=== PATIENT | female | born 1980 | race Caucasian/White ===

== ENCOUNTER 2017-01-06 15:58 | Inpatient (IN) | payer MEDICAID, OTHER ==
--- NOTE | 2017-01-06 16:16 | ED ---
Overdose HPI - General Source: patient, EMS, RN notes reviewed Mode of arrival: EMS Limitations: no limitations - History of Present Illness MD Complaint: intentional overdose <Kye Yates - Last Filed: 01/06/17 16:16> <Ravindra Gonsales - Last Filed: 01/06/17 22:47> - General Chief Complaint: Overdose Stated Complaint: Overdose Time Seen by Provider: 01/06/17 16:04 - History of Present Illness Initial Comments: This is a 36-year-old female with a history of bipolar disorder who took 2425 mg Benadryl about 2 hours prior to admission. She is here in petition by police. She admits to being suicidal and apparently she had her children taken away from her by CPS a couple days ago. She denies any alcohol or drugs this time. She does smoke cigarettes. She had a hysterectomy 6 years ago and states she could not possibly be . (Kye Yates) Review of Systems ROS Other: All systems not noted in ROS Statement are negative. <Kye Yates - Last Filed: 01/06/17 16:16> ROS Other: All systems not noted in ROS Statement are negative. <Ravindra Gonsales - Last Filed: 01/06/17 22:47> ROS Statement: Those systems with pertinent positive or pertinent negative responses have been documented in the HPI. Past Medical History Past Medical History: Thyroid Disorder History of Any Multi-Drug Resistant Organisms: MRSA Date of last positivie culture/infection: 11/2015 MDRO Source:: hand Past Surgical History: Hysterectomy Additional Past Surgical History / Comment(s): carpal tunnel surgery, D&C Past Psychological History: Bipolar Smoking Status: Current every day smoker Past Alcohol Use History: None Reported Past Drug Use History: None Reported <MilanKye - Last Filed: 01/06/17 16:16> General Exam Limitations: no limitations General appearance: alert, in no apparent distress Head exam: Present: atraumatic, normocephalic, normal inspection Eye exam: Present: normal appearance, PERRL, EOMI. Absent: scleral icterus, conjunctival injection, periorbital swelling ENT exam: Present: normal exam, mucous membranes moist Neck exam: Present: normal inspection. Absent: tenderness, meningismus, lymphadenopathy Respiratory exam: Present: normal lung sounds bilaterally. Absent: respiratory distress, wheezes, rales, rhonchi, stridor Cardiovascular Exam: Present: regular rate, normal rhythm, normal heart sounds. Absent: systolic murmur, diastolic murmur, rubs, gallop, clicks GI/Abdominal exam: Present: soft, normal bowel sounds. Absent: distended, tenderness, guarding, rebound, rigid Extremities exam: Present: normal inspection, full ROM, normal capillary refill. Absent: tenderness, pedal edema, joint swelling, calf tenderness Back exam: Present: normal inspection Neurological exam: Present: alert, oriented X3, CN II-XII intact Psychiatric exam: Present: depressed, flat affect, suicidal ideation Skin exam: Present: warm, dry, intact, normal color. Absent: rash <Kye Yates - Last Filed: 01/06/17 16:16> General appearance: alert, in no apparent distress Head exam: Present: atraumatic, normocephalic, normal inspection Eye exam: Present: normal appearance, PERRL, EOMI. Absent: scleral icterus, conjunctival injection, periorbital swelling ENT exam: Present: normal exam, mucous membranes moist Neck exam: Present: normal inspection. Absent: tenderness, meningismus, lymphadenopathy Respiratory exam: Present: normal lung sounds bilaterally. Absent: respiratory distress, wheezes, rales, rhonchi, stridor Cardiovascular Exam: Present: regular rate, normal rhythm, normal heart sounds. Absent: systolic murmur, diastolic murmur, rubs, gallop, clicks GI/Abdominal exam: Present: soft, normal bowel sounds. Absent: distended, tenderness, guarding, rebound, rigid Extremities exam: Present: normal inspection, full ROM, normal capillary refill. Absent: tenderness, pedal edema, joint swelling, calf tenderness Back exam: Present: normal inspection Neurological exam: Present: alert, oriented X3, CN II-XII intact Psychiatric exam: Present: normal affect, normal mood Skin exam: Present: warm, dry, intact, normal color. Absent: rash <Ravindra Gonsales - Last Filed: 01/06/17 22:47> - General Exam Comments Initial Comments: This is a well-developed well-nourished awake alert but lethargic female (Kye Yates) Course <Kye Yates - Last Filed: 01/06/17 16:16> <Ravidnra Gonsales - Last Filed: 01/06/17 22:47> Vital Signs 01/06/17 01/06/17 01/06/17 15:59 17:06 17:50 Temperature 97 F L Pulse Rate 63 63 54 L Respiratory 16 18 18 Rate Blood Pressure 150/87 133/75 120/73 O2 Sat by Pulse 100 100 100 Oximetry 01/06/17 01/06/17 19:00 21:20 Temperature 97.9 F Pulse Rate 57 L 65 Respiratory 18 16 Rate Blood Pressure 137/82 134/70 O2 Sat by Pulse 100 99 Oximetry - Reevaluation(s) Reevaluation #1: 01/06/17 22:46 Patient's medically clear for psychiatric evaluation (Ravindra Gonsales) Medical Decision Making - EKG Data -: EKG Interpreted by Al EKG shows normal: sinus rhythm (Sinus rhythm of 59. Interval 132 QRS duration 90 QT since QTC of 466/461 moderate criteria for LVH no acute ST-T wave elevation or depressions) <Kye Yates - Last Filed: 01/06/17 16:16> - Lab Data Result diagrams: 01/06/17 16:49 01/06/17 16:44 <Ravindra Gonsales - Last Filed: 01/06/17 22:47> - Medical Decision Making 36 female who was seen and evaluated with psychiatry, will be admitted for psychiatric evaluation and treatment (Ravindra Gonsales) - Lab Data Lab Results 01/06/17 01/06/17 Range/Units 16:44 16:49 WBC 8.4 (3.8-10.6) k/uL RBC 4.25 (3.80-5.40) m/uL Hgb 13.2 (11.4-16.0) gm/dL Hct 40.1 (34.0-46.0) % MCV 94.2 (80.0-100.0) fL MCH 31.1 (25.0-35.0) pg MCHC 33.0 (31.0-37.0) g/dL RDW 13.3 (11.5-15.5) % Plt Count 221 (150-450) k/uL Neutrophils % 60 % Lymphocytes % 32 % Monocytes % 4 % Eosinophils % 2 % Basophils % 1 % Neutrophils # 5.0 (1.3-7.7) k/uL Lymphocytes # 2.7 (1.0-4.8) k/uL Monocytes # 0.3 (0-1.0) k/uL Eosinophils # 0.2 (0-0.7) k/uL Basophils # 0.1 (0-0.2) k/uL Sodium 143 (137-145) mmol/L Potassium 3.4 L (3.5-5.1) mmol/L Chloride 110 H (98-107) mmol/L Carbon Dioxide 25 (22-30) mmol/L Anion Gap 8 mmol/L BUN 9 (7-17) mg/dL Creatinine 0.67 (0.52-1.04) mg/dL Est GFR (MDRD) Af Amer >60 (>60 ml/min/1.73 sqM) Est GFR (MDRD) Non-Af >60 (>60 ml/min/1.73 sqM) Glucose 68 L (74-99) mg/dL Calcium 9.4 (8.4-10.2) mg/dL Salicylates <1.0 mg/dL Acetaminophen <10.0 ug/mL Serum Alcohol <10 mg/dL Disposition <Kye Yates - Last Filed: 01/06/17 16:16> <Ravindra Gonsales - Last Filed: 01/06/17 22:47> Clinical Impression: Suicide attempt by multiple drug overdose Disposition: TRANSFER TO PSYCH HOSP/UNIT Condition: Fair Referrals: None,Stated [Primary Care Provider] - 1-2 days
[2017-01-06 16:59] LABS: Basophils # (A) 0.1 k/uL (0-0.2); Basophils % (A) 1 %; CH 30.8; CHCM 32.9; Eosinophils # (A) 0.2 k/uL (0-0.7); Eosinophils % (A) 2 %; HCT 40.1 % (34.0-46.0); HDW 2.47; HGB 13.2 gm/dL (11.4-16.0); Luc # (Auto) 0.12; Luc % (Auto) 1; Lymphocytes # (A) 2.7 k/uL (1.0-4.8); Lymphocytes % (A) 32 %; MCH 31.1 pg (25.0-35.0); MCV 94.2 fL (80.0-100.0); Mean Platelet Volume 8.1; Monocytes # (A) 0.3 k/uL (0-1.0); Monocytes % (A) 4 %; Neutrophils % (A) 60 %; RBC 4.25 m/uL (3.80-5.40); RDW 13.3 % (11.5-15.5); WBC 8.4 k/uL (3.8-10.6); WBC (Perox) 8.58
[2017-01-06 17:08] LABS: Acetaminophen <10.0 ug/mL; Alcohol <10 mg/dL; Anion Gap 8 mmol/L; Blood Urea Nitrogen 9 mg/dL (7-17); Calcium 9.4 mg/dL (8.4-10.2); Carbon Dioxide 25 mmol/L (22-30); Chloride 110 mmol/L (98-107); Glucose 68 mg/dL (74-99); Non-African American GFR(MDRD) >60 (>60 ml/min/1.73 sqM); Potassium 3.4 mmol/L (3.5-5.1); Salicylate <1.0 mg/dL; Sodium 143 mmol/L (137-145)
[2017-01-07 01:14] LABS: Glucose,Whole Blood 83 mg/dL (75-99)
[2017-01-07] MEDS ORDERED: MAGNESIUM HYDROXIDE 2,400 MG/10 ML CUP PO PRN (02:40)
[2017-01-07] MEDS ORDERED: ZIPRASIDONE 20 MG VIAL IM PRN (02:40)
[2017-01-07] MEDS ORDERED: MAG HYDROX/AL HYDROX/SIMETH 30 ML CUP PO PRN (02:40)
[2017-01-07] MEDS ORDERED: LORazepam 2 MG/ML INJ IM PRN (02:44)
[2017-01-07] MEDS: NICOTINE 14MG/24HR PATCH TRANSDERM SCH (08:11)
[2017-01-07] MEDS ORDERED: LEVOTHYROXINE 75 MCG TAB PO STA (10:53)
[2017-01-07] MEDS: GABAPENTIN 300 MG CAP PO SCH ×3 (12:00→20:32)
[2017-01-07] MEDS: LORazepam 1 MG TAB PO PRN ×2 (12:01→16:19)
[2017-01-07] MEDS: ACETAMINOPHEN TAB 325 MG TAB PO PRN (12:02)
--- NOTE | 2017-01-07 12:52 | P.HPMEDMHU ---
History of Present Illness H&P Date: 01/07/17 Chief Complaint: depression 36-year-old female that was admitted for depression. Patient says that she recently moved here to the area. She denies being actively suicidal now. Review of Systems All systems: negative Constitutional: Denies chills, Denies fever Eyes: denies blurred vision, denies diplopia Ears, nose, mouth and throat: Denies headache, Denies sore throat Cardiovascular: Denies chest pain, Denies shortness of breath Respiratory: Denies cough, Denies pleurisy, Denies wheezing Gastrointestinal: Denies abdominal pain, Denies diarrhea, Denies nausea, Denies vomiting Genitourinary: Denies dysuria, Denies hematuria Musculoskeletal: right: wrist pain (pain and numbness sec to carpal tunnel), absent: ankle pain, hand pain Integumentary: Denies pruritus, Denies rash Neurological: Reports numbness, Denies weakness Psychiatric: Reports depression Endocrine: Denies fatigue, Denies weight change Hematologic/Lymphatic: Denies lymphadenopathy Past Medical History Past Medical History: Thyroid Disorder History of Any Multi-Drug Resistant Organisms: MRSA Date of last positivie culture/infection: 11/2015 MDRO Source:: hand Past Surgical History: Hysterectomy Additional Past Surgical History / Comment(s): carpal tunnel surgery, D&C Past Psychological History: Bipolar Smoking Status: Current every day smoker Past Alcohol Use History: None Reported Past Drug Use History: None Reported Medications and Allergies Home Medications and Allergies Comment(s): synthroid (has taken in over 1 month) Home Medications Medication Instructions Recorded Confirmed Type No Known Home Medications [No 01/06/17 01/06/17 History Known Home Medications] Allergies Allergy/AdvReac Type Severity Reaction Status Date / Time No Known Allergies Allergy Verified 01/06/17 16:28 Physical Exam Vitals: Vital Signs Temp Pulse Pulse Resp BP BP Pulse Ox 01/07/17 02:08 98.1 F 69 16 109/71 01/07/17 01:36 97.4 F L 67 16 126/59 97 01/06/17 21:20 97.9 F 65 16 134/70 99 01/06/17 19:00 57 L 18 137/82 100 01/06/17 17:50 54 L 18 120/73 100 01/06/17 17:06 63 18 133/75 100 01/06/17 15:59 97 F L 63 16 150/87 100 Intake and Output 01/06/17 01/07/17 01/07/17 22:59 06:59 14:59 Other: Weight 67.132 kg 63.957 kg - Constitutional General appearance: no acute distress - EENT Eyes: EOMI, PERRLA ENT: normal oropharynx - Neck Neck: no lymphadenopathy, normal ROM - Respiratory Respiratory: bilateral: CTA, negative: rhonchi, wheezing - Cardiovascular Rhythm: regular Heart sounds: normal: S1, S2 - Gastrointestinal General gastrointestinal: no organomegaly, soft, no tenderness - Integumentary Integumentary: normal, no rash - Neurologic Neurologic: CNII-XII intact - Psychiatric Psychiatric: A&O x's 3 Cranial Nerve Examination - Cranial Nerves Cranial Nerve II- Optic: Intact Cranial Nerve III- Oculomotor: Intact Cranial Nerve IV- Trochlear: Intact Cranial Nerve V- Trigeminal: Intact Cranial Nerve - Abducens: Intact Cranial Nerve VII- Facial: Intact Cranial Nerve VIII- Auditory: Intact Cranial Nerve IX- Glossopharyngeal: Intact Cranial Nerve X- Vagus: Intact Cranial Nerve XI- Accessory: Intact Cranial Nerve XII- Hypoglossal: Intact Results CBC & Chem 7: 01/06/17 16:49 01/06/17 16:44 Labs: Abnormal Lab Results - Last 24 Hours (Table) 01/06/17 01/06/17 Range/Units 16:44 22:40 Potassium 3.4 L (3.5-5.1) mmol/L Chloride 110 H (98-107) mmol/L Glucose 68 L (74-99) mg/dL Ur Amphetamines Screen Detected H (NotDetected) U Methamphetamines Scrn Detected H (NotDetected) U Benzodiazepines Scrn Detected H (NotDetected) Assessment and Plan (1) Suicide attempt by multiple drug overdose Current Visit: Yes Status: Acute Code(s): T50.902A - POISONING BY UNSP DRUG/ MEDS/BIOL SUBST, SELF-HARM, INIT SNOMED Code(s): 58711544 (2) Depression Narrative/Plan: per psychiatry Current Visit: Yes Status: Acute Code(s): F32.9 - MAJOR DEPRESSIVE DISORDER , SINGLE EPISODE, UNSPECIFIED SNOMED Code(s): 04149729 (3) Hypothyroid Narrative/Plan: Patient has not taken her medication for over a month Would recommend checking thyroid profile at this time Current Visit: Yes Status: Acute Code(s): E03.9 - HYPOTHYROIDISM, UNSPECIFIED SNOMED Code(s): 52045495
[2017-01-07] MEDS: OLANZapine 5 MG TAB PO SCH (20:32)
--- NOTE | 2017-01-08 02:08 | P.HP ---
Psychiatric H&P - . H&P Date: 01/07/17 History & Physical: VITALS: Temp 98.1 F 01/07/17 02:08 Pulse 69 01/07/17 02:08 Resp 16 01/07/17 02:08 BP 109/71 01/07/17 02:08 Pulse Ox 97 01/07/17 01:36 I/O'S: 01/06/17 01/07/17 01/07/17 18:59 06:59 18:59 Weight 67.132 kg 63.957 kg LABS: WBC 8.4 k/uL (3.8-10.6) 01/06/17 16:49 RBC 4.25 m/uL (3.80-5.40) 01/06/17 16:49 Hgb 13.2 gm/dL (11.4-16.0) 01/06/17 16:49 Hct 40.1 % (34.0-46.0) 01/06/17 16:49 MCV 94.2 fL (80.0-100.0) 01/06/17 16:49 MCH 31.1 pg (25.0-35.0) 01/06/17 16:49 MCHC 33.0 g/dL (31.0-37.0) 01/06/17 16:49 RDW 13.3 % (11.5-15.5) 01/06/17 16:49 Plt Count 221 k/uL (150-450) 01/06/17 16:49 Neutrophils % 60 % 01/06/17 16:49 Lymphocytes % 32 % 01/06/17 16:49 Monocytes % 4 % 01/06/17 16:49 Eosinophils % 2 % 01/06/17 16:49 Basophils % 1 % 01/06/17 16:49 Neutrophils # 5.0 k/uL (1.3-7.7) 01/06/17 16:49 Lymphocytes # 2.7 k/uL (1.0-4.8) 01/06/17 16:49 Monocytes # 0.3 k/uL (0-1.0) 01/06/17 16:49 Eosinophils # 0.2 k/uL (0-0.7) 01/06/17 16:49 Basophils # 0.1 k/uL (0-0.2) 01/06/17 16:49 Sodium 143 mmol/L (137-145) 01/06/17 16:44 Potassium 3.4 mmol/L (3.5-5.1) L 01/06/17 16:44 Chloride 110 mmol/L (98-107) H 01/06/17 16:44 Carbon Dioxide 25 mmol/L (22-30) 01/06/17 16:44 Anion Gap 8 mmol/L 01/06/17 16:44 BUN 9 mg/dL (7-17) 01/06/17 16:44 Creatinine 0.67 mg/dL (0.52-1.04) 01/06/17 16:44 Est GFR (MDRD) Af Amer >60 (>60 ml/min/1.73 sqM) 01/06/17 16:44 Est GFR (MDRD) Non-Af >60 (>60 ml/min/1.73 sqM) 01/06/17 16:44 Glucose 68 mg/dL (74-99) L 01/06/17 16:44 POC Glucose (mg/dL) 83 mg/dL (75-99) 01/07/17 01:10 POC Glu Security Systems Manager Dawna Judd 01/07/17 01:10 Calcium 9.4 mg/dL (8.4-10.2) 01/06/17 16:44 Urine HCG, Qual Not Detected (Not Detectd) 01/06/17 22:40 Salicylates <1.0 mg/dL 01/06/17 16:44 Urine Opiates Screen Not Detected (NotDetected) 01/06/17 22:40 Ur Oxycodone Screen Not Detected (NotDetected) 01/06/17 22:40 Urine Methadone Screen Not Detected (NotDetected) 01/06/17 22:40 Ur Propoxyphene Screen Not Detected (NotDetected) 01/06/17 22:40 Acetaminophen <10.0 ug/mL 01/06/17 16:44 Ur Barbiturates Screen Not Detected (NotDetected) 01/06/17 22:40 U Tricyclic Antidepress Not Detected (NotDetected) 01/06/17 22:40 Ur Phencyclidine Scrn Not Detected (NotDetected) 01/06/17 22:40 Ur Amphetamines Screen Detected (NotDetected) H 01/06/17 22:40 U Methamphetamines Scrn Detected (NotDetected) H 01/06/17 22:40 U Benzodiazepines Scrn Detected (NotDetected) H 01/06/17 22:40 Urine Cocaine Screen Not Detected (NotDetected) 01/06/17 22:40 U Marijuana (THC) Screen Not Detected (NotDetected) 01/06/17 22:40 Serum Alcohol <10 mg/dL 01/06/17 16:44 HPI: Patient is 36 year old female who presented to the ER by EMS after overdosing on approximately 24 25-mg tablet of Benadryl 2-hours prior to presentation. Patients reason for such was that CPS took her children away a few days ago. Patients petition is bizarre and references patient engaging in what sounds to be psychotic behavior at home with a knife that father denied when collateral was obtained later today. However, patients UDS is positive for amphetamine, methamphetamine, and she did OD on 24+ Benadryl so the exact nature of her mental status prior to admission is unknown. However, her father denies any property damage and her children are in ID. At this time patient remains paranoid but denies SI/HI/AVH. PSYCHIATRIC HISTORY: 05/2016 at [facility] in [place] PAST HISTORY: Past Medical History: Thyroid Disorder History of Any Multi-Drug Resistant Organisms: MRSA Date of last positive culture/infection: 11/2015 MDRO Source:: hand Past Surgical History: Hysterectomy Additional Past Surgical History / Comment(s): carpal tunnel surgery, D&C Past Psychological History: Bipolar Smoking Status: Current every day smoker Past Alcohol Use History: None Reported Past Drug Use History: None Reported HOME MEDICATIONS: Zyprexa 5-mg PO BID Neurontin 600-mg PO TID Synthroid 75-mcg PO AC Breakfast ALLERGIES: No Known Allergies FAMILY HISTORY: No siblings, bipolar disorder "Good growing up" SOCIAL HISTORY: Education: 11th Occupational : factory work, 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[employer], currently unemployed Environmental: currently lives with father, : no Spiritism: no Access to firearms: no Sexual orientation: heterosexual Safety at home: no STRENGTHS/WEAKNESSES: Family support Non-compliance, impulsivity MENTAL STATUS EXAM: Appearance: alert, hygiene intact, appears stated age, steady gait Behavior: psychomotor agitation+++, no abnormal movements, fair eye contact Attitude: cooperative Speech: normal rate, rhythm, fluency, articulation, volume, and prosody; primary language: Ukrainian Mood: anxious Affect: congruent, reactive Thought processes: overall linear at times concrete Thought content: patient does not appear to be responding to internal stimuli; patient denies auditory and visual hallucinations, no delusions appreciated, paranoid Insight: limited Judgment: poor Cognitive: oriented to all 3 spheres, average intelligence Assessment and Plan (1) Mood disorder Current Visit: Yes Status: Acute Code(s): F39 - UNSPECIFIED MOOD [AFFECTIVE ] DISORDER SNOMED Code(s): 69450016 (2) Anticholinergic drug overdose Current Visit: Yes Status: Acute Code(s): T44.3X1A - POISONING BY OTH PARASYMPATH AND SPASMOLYTICS, ACC, INIT SNOMED Code(s): 275181489 (3) Hypothyroid Current Visit: Yes Status: Acute Code(s): E03.9 - HYPOTHYROIDISM, UNSPECIFIED SNOMED Code(s): 00649419 Plan: Restart home medications patient has been mostly noncompliant with she was prescribed in [place] per her request: Zyprexa 5-mg PO BID Neurontin 300-mg PO TID Synthroid 75-mcg PO Breakfast AC Continue hospitalization SW will arrange a family meeting Provisional discharge on 01/10/2017 Time with Patient: Greater than 30
[2017-01-08] MEDS: LEVOTHYROXINE 75 MCG TAB PO SCH (05:54)
[2017-01-08] MEDS ORDERED: LEVOTHYROXINE 75 MCG TAB PO SCH (06:30)
[2017-01-08] MEDS: NICOTINE 14MG/24HR PATCH TRANSDERM SCH (09:01)
[2017-01-08] MEDS: GABAPENTIN 300 MG CAP PO SCH ×3 (09:01→21:05)
[2017-01-08] MEDS: OLANZapine 5 MG TAB PO SCH ×2 (09:01→19:53)
[2017-01-08] MEDS: LORazepam 1 MG TAB PO PRN ×2 (09:02→15:22)
[2017-01-08] MEDS: ACETAMINOPHEN TAB 325 MG TAB PO PRN (13:02)
--- NOTE | 2017-01-08 16:03 | P.PN ---
Progress Note - Text Progress Note Date: 01/08/17 interval history: Patient reports that she feels more withdrawn today. She states that she is sleeping a lot. She is eating well. She states that her kids were Dr. Vega in [place] and the plan was for her mom to have them for a period of time. She does seem to describe some aspects of depression. She has responded well to Celexa in the past she states. Mental status exam: She is alert and cooperative with the interview. Her speech is fluent, not rapid or pressured. Thought processes are organized. She denies any thoughts of harm to self or others. She denies any hallucinations. She denies any paranoid thinking. She does not show any agitation. Her affect overall is restricted. Plan: We'll maintain current psychotropic medications. Continue to monitor her mood. Consider initiation of antidepressant depending on her status over the next day or so. She reports responding well to Celexa in the past. Continue to cover this patient for Dr. Velazquez through the weekend.
[2017-01-09] MEDS: LORazepam 1 MG TAB PO PRN ×3 (00:12→15:55)
[2017-01-09] MEDS: LEVOTHYROXINE 75 MCG TAB PO SCH (06:43)
[2017-01-09] MEDS: OLANZapine 5 MG TAB PO SCH ×2 (08:40→21:09)
[2017-01-09] MEDS: NICOTINE 14MG/24HR PATCH TRANSDERM SCH (08:40)
[2017-01-09] MEDS: GABAPENTIN 300 MG CAP PO SCH ×3 (08:40→21:09)
--- NOTE | 2017-01-09 16:36 | P.PN ---
Progress Note - Text Progress Note Date: 01/09/17 Interval history: Patient is seen in cross coverage today for Dr. Velazquez. She reports that she wants to go home. She makes reference to after discharge staying with her father. She does seem to describe anxiety. She reports that she got a call from her ex-last night and she ended up hanging up. There was concern verbalize by staff regarding her making reference of thoughts of harm to him. She verbalizes that she was angry at him but denies any thoughts of harm to him and denies any thoughts of harm to other people. Mental status exam: She is alert and overall cooperative with the interview. Her affect is restricted. She denies any thoughts of harm to self or others. She denies any thoughts of harm to her ex. She does not verbalize any hallucinations. Her thought processes overall are organized. She does not show any significant degree of agitation. Plan: Patient will be maintained on current psychotropic medication regimen. We 'll continue to monitor her mood and monitor regarding any thoughts of harm to self or others. Dr. Velazquez to resume care this patient starting tomorrow.
[2017-01-09] MEDS: ACETAMINOPHEN TAB 325 MG TAB PO PRN (18:33)
[2017-01-09] MEDS: LORATADINE 10 MG TAB PO SCH (21:09)
[2017-01-10] MEDS: LEVOTHYROXINE 75 MCG TAB PO SCH (06:25)
[2017-01-10 07:09] VITALS: BP 111/59; PULSE 74; RESP 14; TEMP 98.3
[2017-01-10] MEDS: LORATADINE 10 MG TAB PO SCH (08:37)
[2017-01-10] MEDS: OLANZapine 5 MG TAB PO SCH (08:37)
[2017-01-10] MEDS: GABAPENTIN 300 MG CAP PO SCH (08:37)
[2017-01-10] MEDS: NICOTINE 14MG/24HR PATCH TRANSDERM SCH (08:37)
[2017-01-10] MEDS: LORazepam 1 MG TAB PO PRN (08:38)
--- NOTE | 2017-01-30 22:38 | P.DS ---
Providers Date of admission: 01/07/17 01:23 Expected date of discharge: 01/10/17 Attending physician: Toni Velazquez DO Consults: 01/07/17 02:40 Consult Physician Routine Consulting Provider: Robin Thomson Consult Reason/Comments: medical management Do you want consulting provider notified?: Already Contacted Primary care physician: Stated None - Discharge Diagnosis(es) (1) Mood disorder Status: Acute (2) Anticholinergic drug overdose Status: Ruled-out (3) Hypothyroid Status: Acute Hospital Course: HOSPITAL COURSE: * Legal status at discharge: Voluntary * Compliant with medications: Yes * Reported adverse side effects: No * Required restraints/seclusion: No * Emergency Medication administered: No * Attended group, recreational, activity therapies: Mostly Patient is 36-year-old female who was brought to the hospital by police on a petition with statements about patient thinking there are people living in her couch and stabbing her daughter's bed while she is asleep and it, people breaking into her house and sexually assaulting her children and leaving the trace. She is also reported to have overdosed on 24-25 Benadryl. The patient also states the children were removed from the home 3 days ago. As it turns out very little of this is true. Patient denied all of this. Collateral obtained from father and CPS confirmed there was no damage furniture in the house. The children are in [place]. Patient does have some history of mental illness and does better on medication per father. He reports that she has not Provider in a while and thus had no prescriptions. Patient agreeable to restart medications. Father had no objections to patient discharging on this care. SW: met with pt 1:1 to discuss dc planning. pt refuses to sign an BELÉN for her mom, stating she "hates" her "for taking my kids from me". pt signed an BELÉN for her father Kennedy. Pt lives with father and plans to return there upon d/c. Per Kennedy , pt hasn't been on her medications for approximately 2 months. Father states she gets paranoid when she's off her meds. He confirmed no one has been trying to get her cell phone or break in the home. Inquired r/t reports of pt stabbing the bed. Per father, "that never happened. There are no holes in the bed or the couch.". Father states that pt was doing well in [place] but since coming to [place] and getting off meds, she's decompensated. Will discuss further in tx team meeting. MENTAL STATUS EXAM: Appearance: alert, groomed, appears stated age, steady gait Behavior: no psychomotor agitation or psychomotor retardation, no abnormal movements, fair eye contact Attitude: cooperative Speech: normal rate, rhythm, fluency, articulation, volume, and prosody; primary language: Yoruba Mood: anxious Affect: congruent, mildly constricted Thought processes: linear Thought content: patient does not appear to be responding to internal stimuli ; patient denies auditory and visual hallucinations, no delusions appreciated Insight: limited Judgment: fair Cognitive: oriented to all 3 spheres, average intelligence Patient Condition at Discharge: Fair Plan - Discharge Summary New Discharge Prescriptions: New Levothyroxine Sodium [Synthroid] 75 mcg PO DAILY@0630 #14 tab Nicotine 14Mg/24Hr Patch [Habitrol] 1 patch TRANSDERM DAILY 28 Days patch OLANZapine [ZyPREXA] 5 mg PO BID #28 tab Gabapentin [Neurontin] 400 mg PO TID #42 cap Discharge Medication List Gabapentin [Neurontin] 400 mg PO TID #42 cap 01/10/17 [Rx] Levothyroxine Sodium [Synthroid] 75 mcg PO DAILY@0630 #14 tab 01/10/17 [Rx] Nicotine 14Mg/24Hr Patch [Habitrol] 1 patch TRANSDERM DAILY 28 Days patch 01/10 [Rx] OLANZapine [ZyPREXA] 5 mg PO BID #28 tab 01/10/17 [Rx] Follow up Appointment(s)/Referral(s): [facility] [address] [Outside] - 3 Days (walk in intake within next 48 hours. today until 3pm. Tuesday 1030- 5pm Tuesday 830- 300pm ) None,Stated [Primary Care Provider] - 1-2 days Patient Instructions/Handouts: Mood Disorders (GEN), Suicide Prevention for Adults (GEN) Activity/Diet/Wound Care/Special Instructions: Activity and diet as tolerated. Avoid the use of street drugs and alcohol. Take all medications as prescribed. When you are in need of refills on your medications please contact your medical provider and/or outpatient psychiatrist to have this done. Please go to scheduled outpatient appointment for aftercare treatment. If symptoms return or become worse call the the crisis line at and/or go to the nearest emergency room for an evaluation. Discharge Disposition: HOME SELF-CARE
== END 2017-01-10 13:56 | disposition home or self-care (01) | DRG 918 ==
LOC: EC 15:58 → 3MHU 01-07 01:23
PROVIDERS: ADMIT Psychiatry & Neurology Psychiatry; ATTEND Psychiatry & Neurology Psychiatry
DX: T44.3X1A Poisoning by other parasympatholytics [anticholinergics and antimuscarinics] and spasmolytics, accidental (unintentional), initial encounter (principal); F31.9 Bipolar disorder, unspecified; E03.9 Hypothyroidism, unspecified; T43.596A Underdosing of other antipsychotics and neuroleptics, initial encounter; T42.6X6A Underdosing of other antiepileptic and sedative-hypnotic drugs, initial encounter; T38.1X6A Underdosing of thyroid hormones and substitutes, initial encounter; R45.87 Impulsiveness; F41.9 Anxiety disorder, unspecified; F17.210 Nicotine dependence, cigarettes, uncomplicated; Z86.14 Personal history of Methicillin resistant Staphylococcus aureus infection; Z90.710 Acquired absence of both cervix and uterus
CPT/HCPCS: 36415; 80048; 80306; 80320; 81025; 82075; 83520; 84443; 85025; 93005; 99285

== ENCOUNTER 2019-07-19 12:47 | Emergency (ER) | payer MEDICAID, OTHER ==
[2019-07-19 13:02] VITALS: BP 110/56; PULSE 73; RESP 18; TEMP 98.3
[2019-07-19] MEDS ORDERED: CYCLOBENZAPRINE 10MG STARTER 3 TAB BTL PO STA (13:27)
--- NOTE | 2019-07-19 13:29 | ED ---
Neck Injury/Pain HPI - General Chief Complaint: Neck Pain/Injury Stated Complaint: Neck pain/injury Time Seen by Provider: 07/19/19 13:09 Mode of arrival: ambulatory Limitations: no limitations - History of Present Illness Initial Comments: Patient is a 38-year-old female presenting to the emergency department with a chief complaint of neck pain. Patient reports 2 days ago she was in a pool playing with her daughter who was on her shoulders and squeezed her neck with her legs as she went down under water. She states her neck she days she has developed tenderness along the lateral trapezius and now has caused to have limited range of motion with left and right rotation to the neck. Denies taking medication to alleviate the symptoms. Denies any night sweats fevers or chills. Denies any lightheadedness, numbness or tingling. - Related Data Previous Rx's Medication Instructions Recorded Gabapentin [Neurontin] 400 mg PO TID #42 cap 01/10/17 Levothyroxine Sodium [Synthroid] 75 mcg PO DAILY@0630 #14 tab 01/10/17 Nicotine 14Mg/24Hr Patch [Habitrol] 1 patch TRANSDERM DAILY 28 Days 01/10/17 patch OLANZapine [ZyPREXA] 5 mg PO BID #28 tab 01/10/17 Cyclobenzaprine [Flexeril] 5 mg PO TID PRN #15 tablet 07/19/19 Allergies Allergy/AdvReac Type Severity Reaction Status Date / Time No Known Allergies Allergy Verified 07/19/19 13:02 Review of Systems ROS Statement: Those systems with pertinent positive or pertinent negative responses have been documented in the HPI. ROS Other: All systems not noted in ROS Statement are negative. Past Medical History Past Medical History: Thyroid Disorder History of Any Multi-Drug Resistant Organisms: MRSA Date of last positivie culture/infection: 11/2015 MDRO Source:: hand Past Surgical History: Hysterectomy Additional Past Surgical History / Comment(s): carpal tunnel surgery, D&C Past Psychological History: Bipolar Smoking Status: Current every day smoker Past Alcohol Use History: None Reported Past Drug Use History: None Reported General Exam Limitations: no limitations General appearance: alert, in no apparent distress Head exam: Present: atraumatic, normocephalic, normal inspection Eye exam: Present: normal appearance, PERRL, EOMI Pupils: Present: normal accommodation ENT exam: Present: normal exam, mucous membranes moist Neck exam: Present: normal inspection, tenderness (Tenderness along bilateral trapezius. tenderness. No midline cervical tenderness.), full ROM. Absent: meningismus, other (No nuchal rigidity.) Respiratory exam: Present: normal lung sounds bilaterally Cardiovascular Exam: Present: regular rate, normal rhythm, normal heart sounds Extremities exam: Present: normal inspection, full ROM Back exam: Present: normal inspection, full ROM Neurological exam: Present: alert, oriented X3 Psychiatric exam: Present: normal affect, normal mood Skin exam: Present: warm, dry, intact, normal color Course Vital Signs 07/19/19 12:58 Temperature 98.3 F Pulse Rate 73 Respiratory 18 Rate Blood Pressure 110/56 O2 Sat by Pulse 98 Oximetry Medical Decision Making - Medical Decision Making Patient is a 38-year-old female presenting to the emergency department with a chief complaint of neck pain. On exam patient appears to have limited range of motion with left and right rotation due to pain. She does have tenderness along the lateral trapezius radiating to her shoulder. No midline cervical tenderness. No direct trauma to the region. I suspect patient has cervical muscular strain. Patient advised to take Motrin for pain control. She will also be discharged with Flexeril. Patient advised about the possible side effects of the medication. Patient advised to apply warm compress and rest. Return parameters were thoroughly discussed with patient was understanding and agreeable. Advised to follow with primary care. Case discussed with physician. Disposition Clinical Impression: Strain of neck muscle, Neck pain Disposition: HOME SELF-CARE Condition: Stable Instructions (If sedation given, give patient instructions): Cervical Strain (ED) Additional Instructions: Alternate between Tylenol and Motrin for pain control. Apply warm compresses. Take prescribed medication as directed. Return to emergency department if symptoms worsen. Prescriptions: Cyclobenzaprine [Flexeril] 5 mg PO TID PRN #15 tablet PRN Reason: Muscle Spasm Is patient prescribed a controlled substance at d/c from ED?: No Referrals: Nonstaff,Physician [Primary Care Provider] - 1-2 days Time of Disposition: 13:29
== END 2019-07-19 13:40 | disposition home or self-care (01) ==
LOC: EC 12:47
DX: S16.1XXA Strain of muscle, fascia and tendon at neck level, initial encounter (principal); F17.200 Nicotine dependence, unspecified, uncomplicated; W50.0XXA Accidental hit or strike by another person, initial encounter; Y93.11 Activity, swimming; Y92.34 Swimming pool (public) as the place of occurrence of the external cause
CPT/HCPCS: 99283